=== PATIENT | male | born 1940 ===

== ENCOUNTER 2021-11-04 11:42 | Outpatient (CLI) | payer MEDICARE, BC | END 2021-11-04 11:43 | disposition home or self-care (01) | LOC: CSHMRI 11:42 | PROVIDERS: ATTEND Orthopaedic Surgery | DX: M54.32 Sciatica, left side (principal); M51.27 Other intervertebral disc displacement, lumbosacral region; M48.07 Spinal stenosis, lumbosacral region; R93.5 Abnormal findings on diagnostic imaging of other abdominal regions, including retroperitoneum | CPT/HCPCS: 72148 ==